=== PATIENT | female | born 1990 | race Caucasian/White ===

== ENCOUNTER 2023-04-26 05:38 | Inpatient (IN) ==
[2023-04-26] MEDS: Lactated Ringers 1000 ml BAG 1,000 ML IV ONE (05:59)
[2023-04-26 06:24] LABS: ABS Basophils 0.1 10^3/uL (0.0-0.1); ABS Eosinophils 0.1 10^3/uL (0.0-0.5); ABS Lymphocytes 2.3 10^3/uL (1.0-4.8); ABS Neutrophils 9.6 10^3/uL (1.5-7.6); Hematocrit 34.1 % (35-45); Hemoglobin 11.1 g/dL (11.5-14.3); Lymphocyte % 17.4 %; Mean Corpuscular Hgb Conc 32.6 g/dL (31-36); Mean Corpuscular Volume 85.9 fL (80-97); Mean Platelet Volume 10.1 fL (7.5-11.2); Platelet Count 142 10^3/uL (150-450); Red Blood Count 3.97 10^6/uL (3.63-4.92); Red Cell Distribution Width 16.7 % (12-17)
[2023-04-26] MEDS: Vancomycin 1,000 MG in NS 0.9% 250 ml 250 ML IVPB ONE (06:36)
[2023-04-26] MEDS: Sodium Citrate/Citric Acid LIQ 15 ML UDC PO ONE (06:44)
[2023-04-26] MEDS ORDERED: Dexamethasone IV 4 MG/ML VIAL 1 ml VIAL ONE (07:36)
[2023-04-26] MEDS ORDERED: Oxytocin 10 UNITS/ML 1 ML VIAL ONE (07:36)
[2023-04-26] MEDS ORDERED: Morphine PF AMP (0.5MG/ML) 5 MG/10 ML AMP ONE (07:36)
[2023-04-26] MEDS ORDERED: Ondansetron 4 mg VIAL 2 MG/ML 2 ml VIAL ONE (07:36)
[2023-04-26] MEDS ORDERED: fentaNYL 100 mcg/2 ml 50 MCG/ML VIAL ONE (08:45)
[2023-04-26] MEDS ORDERED: Naloxone 0.4 mg VIAL 0.4 mg/ml 1 ml VIAL IV PUSH PRN (09:48)
[2023-04-26] MEDS ORDERED: Metoclopramide 5 MG/ML VIAL (10 mg) IV PRN (09:48)
[2023-04-26] MEDS ORDERED: Glycerin ADULT 2.4 gm SUPP PR PRN (10:05)
[2023-04-26] MEDS ORDERED: Witch Hazel PAD JAR TOPICAL PRN (10:05)
[2023-04-26] MEDS ORDERED: Dibucaine 1% OINT 28.35 GM TUBE PR PRN (10:05)
[2023-04-26] MEDS ORDERED: Lactated Ringers 1000 ml BAG 1,000 ML IV SCH (11:00)
[2023-04-26] MEDS: Oxytocin in LR 20,000 MILLI.UNIT/1,000 ML BAG IV SCH (11:08)
[2023-04-26] MEDS: Acetaminophen IV 1 GM/100ML 1,000 MG/100 ML BAG IV PRN (11:08)
[2023-04-26 11:29] LABS: Urine Appearance Clear; Urine Bilirubin Negative (Negative); Urine Blood Negative (Negative); Urine Color Yellow; Urine Glucose Negative (Negative); Urine Ketones Negative (Negative); Urine Nitrite Negative (Negative); Urine Protein Negative (Negative); Urine Specific Gravity 1.015 (1.002-1.030); Urine Urobilinogen Negative (Negative)
[2023-04-26] MEDS: Lactated Ringers 1000 ml BAG 1,000 ML IV SCH (11:48)
[2023-04-26] MEDS: Buffered Lidocaine 1% SYRIN 1 ml INTRADERM ONE (11:48)
[2023-04-26 12:36] LABS: Urine Benzodiazepine Screen None Detected (None Detect); Urine Cannabinoids Screen None Detected (None Detect); Urine Opiates Screen None Detected (None Detect)
[2023-04-26] MEDS: Ondansetron 4 mg VIAL 2 MG/ML 2 ml VIAL IV PRN (15:24)
[2023-04-27 07:35] LABS: ABS Lymphocytes 2.6 10^3/uL (1.0-4.8); ABS Monocytes 1.3 10^3/uL (0.0-0.9); ABS Neutrophils 14.7 10^3/uL (1.5-7.6); Eosinophil % 0.1 %; Hematocrit 24.1 % (35-45); Lymphocyte % 13.8 %; Mean Corpuscular Hemoglobin 28.3 pg (27-33); Mean Corpuscular Hgb Conc 33.1 g/dL (31-36); Mean Corpuscular Volume 85.5 fL (80-97); Mean Platelet Volume 9.8 fL (7.5-11.2); Platelet Count 133 10^3/uL (150-450); Red Blood Count 2.81 10^6/uL (3.63-4.92); Red Cell Distribution Width 16.7 % (12-17); White Blood Count 18.6 10^3/uL (3.8-11.8)
[2023-04-28 08:15] VITALS: BP 112/70
== END 2023-04-28 11:45 | disposition home or self-care (01) | DRG 540 ==
LOC: MCHOB 05:38
PROVIDERS: ADMIT Obstetrics & Gynecology; ATTEND Obstetrics & Gynecology

== ENCOUNTER 2024-04-06 21:57 | Observation (INO) ==
[2024-04-06 23:59] LABS: Hematocrit 30.9 % (35-45); Hemoglobin 10.4 g/dL (11.5-14.3); Mean Corpuscular Hgb Conc 33.7 g/dL (31-36); Mean Platelet Volume 10.6 fL (7.5-11.2); Platelet Count 147 10^3/uL (150-450); Red Blood Count 3.47 10^6/uL (3.63-4.92); Red Cell Distribution Width 14.6 % (12-17); White Blood Count 25.2 10^3/uL (3.8-11.8)
[2024-04-07 00:21] LABS: ABS Lymphocytes 0.6 10^3/uL (1.0-4.8); ABS Monocytes 1.3 10^3/uL (0.0-0.9); ABS Neutrophils 23.3 10^3/uL (1.5-7.6); Lymphocyte % 2.2 %
[2024-04-07 00:30] LABS: Albumin 3.1 g/dL (3.5-5.7); Albumin/Globulin Ratio 1.5 (1-3); C Reactive Protein 109.01 mg/L (<8.01); Calcium 7.2 mg/dL (8.6-10.3); Creatinine, Serum 0.64 mg/dL (0.51-0.95); Globulin 2.1 g/dL (2-4); Magnesium 1.3 mg/dL (1.9-2.7); Potassium 3.5 mmol/L (3.5-5.0); Total Bilirubin 0.6 mg/dL (0.2-1.0); Total Protein 5.2 g/dL (6.4-8.9); eGFR CKD-EPI 121.1 (>60)
[2024-04-07] MEDS: Morphine 2 MG/ML SYRINGE IV ONE (01:11)
[2024-04-07] MEDS: Magnesium Sulfate 2 gm BAG 2 GM/50 ML BAG IVPB ONE (02:31)
[2024-04-07] MEDS: Lactated Ringers 1000 ml BAG 1,000 ML IV SCH (02:31)
[2024-04-07] MEDS ORDERED: Ondansetron 4 mg VIAL 2 MG/ML 2 ml VIAL ONE (02:42)
[2024-04-07] MEDS: Ondansetron 4 mg VIAL 2 MG/ML 2 ml VIAL IV ONE (02:52)
[2024-04-07] MEDS ORDERED: [UNRECOGNIZED DRUG - OTHER] PO PRN (03:57)
[2024-04-07] MEDS ORDERED: DOXYLAMINE SUCCINATE PO PRN (03:57)
[2024-04-07] MEDS ORDERED: PYRIDOXINE PO PRN (03:57)
[2024-04-07 04:45] LABS: High Sensitivity Troponin 1 Hr 9 pg/mL (<15)
[2024-04-07 05:29] LABS: Hematocrit 30.1 % (35-45); Hemoglobin 10.4 g/dL (11.5-14.3); Mean Corpuscular Hemoglobin 30.5 pg (27-33); Mean Corpuscular Hgb Conc 34.5 g/dL (31-36); Mean Corpuscular Volume 88.3 fL (80-97); Mean Platelet Volume 10.5 fL (7.5-11.2); Platelet Count 142 10^3/uL (150-450); Red Blood Count 3.41 10^6/uL (3.63-4.92); Red Cell Distribution Width 14.6 % (12-17); White Blood Count 29.2 10^3/uL (3.8-11.8)
[2024-04-07] MEDS: Enoxaparin 80 MG/0.8 ML SYR SUBCUT SCH (05:51)
[2024-04-07 06:10] LABS: ABS Basophils 0.1 10^3/uL (0.0-0.1); ABS Lymphocytes 1.1 10^3/uL (1.0-4.8); ABS Monocytes 1.2 10^3/uL (0.0-0.9); ABS Neutrophils 26.7 10^3/uL (1.5-7.6); Lymphocyte % 3.8 %
[2024-04-07 06:13] LABS: Calcium 7.4 mg/dL (8.6-10.3); Creatinine, Serum 0.57 mg/dL (0.51-0.95); Magnesium 1.9 mg/dL (1.9-2.7); Potassium 3.5 mmol/L (3.5-5.0); eGFR CKD-EPI 124.5 (>60)
[2024-04-07] MEDS: [UNRECOGNIZED DRUG - OTHER] PO SCH (06:27)
[2024-04-07] MEDS: [UNRECOGNIZED DRUG - OTHER] PO SCH (06:27)
[2024-04-07] MEDS ORDERED: Benzocaine/Menthol LOZ MT PRN (07:46)
[2024-04-07] MEDS: cefTRIAXone 1 gm/50 mL D5W 1 GM/50 ML BAG IV SCH (12:51)
[2024-04-07] MEDS: Levalbuterol HFA INHALER MDI INH SCH (14:09)
[2024-04-07] MEDS: Azithromycin 500 mg/250 ml NS 500 MG/250 ML BAG IVPB SCH (14:11)
[2024-04-07] MEDS: Ondansetron ODT 4 mg TAB 4 MG TAB SL PRN (15:12)
[2024-04-07] MEDS: Enoxaparin 40 MG/0.4 ML SYR SUBCUT SCH (20:54)
[2024-04-08 06:15] LABS: Hemoglobin 10.2 g/dL (11.5-14.3); Mean Corpuscular Hemoglobin 30.3 pg (27-33); Mean Corpuscular Volume 89.1 fL (80-97); Mean Platelet Volume 10.5 fL (7.5-11.2); Platelet Count 150 10^3/uL (150-450); Red Blood Count 3.36 10^6/uL (3.63-4.92); Red Cell Distribution Width 14.8 % (12-17); White Blood Count 26.3 10^3/uL (3.8-11.8)
[2024-04-08 06:36] LABS: ABS Basophils 0.1 10^3/uL (0.0-0.1); ABS Lymphocytes 1.7 10^3/uL (1.0-4.8); ABS Monocytes 0.6 10^3/uL (0.0-0.9); ABS Neutrophils 23.9 10^3/uL (1.5-7.6); ABS Nucleated RBC 0.01 10^3/ul; Eosinophil % 0.1 %; Lymphocyte % 6.5 %
[2024-04-08 06:59] LABS: Albumin/Globulin Ratio 1.2 (1-3); Calcium 8.3 mg/dL (8.6-10.3); Creatinine, Serum 0.45 mg/dL (0.51-0.95); Globulin 2.6 g/dL (2-4); Magnesium 1.7 mg/dL (1.9-2.7); Potassium 3.9 mmol/L (3.5-5.0); Total Bilirubin 0.2 mg/dL (0.2-1.0); Total Protein 5.6 g/dL (6.4-8.9); eGFR CKD-EPI 131.8 (>60)
[2024-04-08] MEDS: Magnesium Sulfate 2 gm BAG 2 GM/50 ML BAG IVPB ONE (09:39)
[2024-04-08] MEDS: [UNRECOGNIZED DRUG - OTHER] PO SCH (09:45)
[2024-04-08 14:57] VITALS: BP 119/73
== END 2024-04-08 16:15 | disposition home or self-care (01) ==
LOC: ED 21:57 → EDHOLD 21:57 → SUATTDRO 04-07 03:14 → MEDTELE 04-08 07:39
PROVIDERS: ADMIT Student in an Organized Health Care Education/Training Program; ATTEND Internal Medicine